=== PATIENT | female | born 1990 | race Caucasian/White ===

== ENCOUNTER 2017-05-30 13:19 | Emergency (ER) | payer OTHER ==
[~2017-05-30] VITALS: Ht 149.9 cm; Wt 49.7 kg
[2017-05-30 13:39] VITALS: BP 132/82
--- NOTE | 2017-05-30 15:17 | NUR ---
Patient ambulated to bed 3 with family. RN evaluating patient at bedside.
--- NOTE | 2017-05-30 15:18 | NUR ---
6F BIB FAMILY C/O HEADACHE ,NAUSEA AND VOMITING X 10 WEEKS; PT STATES 10 WEEKS & EPIGASTRIC PAIN AT THIS TIME. HX OF LUPUS, PANCREATITIS. SKIN IS PINK/WARM/DRY; AAOX4 WITH EVEN AND STEADY GAIT; LUNGS CLEAR BL; HR EVEN AND REGULAR; PT DENIES ANY FEVER, CP, SOB, OR COUGH AT THIS TIME; PATIENT STATES PAIN OF 10/10 AT THIS TIME; VSS; PATIENT POSITIONED FOR COMFORT; HOB ELEVATED; BEDRAILS UP X2; BED DOWN. ER MADE AWARE OF PT STATUS. Addendum: [facility]30[facility]17 [facility] TO [facility] 2 WKS AGO WITH DX OF PANCREATITIS.
--- NOTE | 2017-05-30 15:48 | NUR ---
PT STS'I FEEL ANXIETY NOW & ABDOMINAL PAIN. NOTIFIED ER MD DR OLIVO. Addendum: 05/30/17 at 1743 [facility]
[2017-05-30] MEDS ORDERED: ONDANSETRON 4 MG ODT PO ONE (16:00)
--- NOTE | 2017-05-30 16:12 | NUR ---
RUTHY OLIVO EVALUATING PT AT BEDSIDE. PT STS ALLERGIC TO RAGLAN & JAIRAN. Addendum: 05/30/17 at 1614 by [facility] PT REFUSED MICHELLE . NOTIFIED MD OLIVO.
[2017-05-30] MEDS ORDERED: NACL 0.9% 1,000 ML IV ONE (16:15)
[2017-05-30] MEDS ORDERED: PROMETHAZINE 25 MG/ML VIAL IVP ONE (16:15)
[2017-05-30] MEDS ORDERED: MORPHINE SULFATE 2 MG/ML SYR IVP ONE (16:30)
--- NOTE | 2017-05-30 16:30 | NUR ---
INSERTED IV CATH NO20G LAC; PT TOLERATED PROCEDURE WELL. IV PATENT/INTACT.
--- NOTE | 2017-05-30 16:35 | NUR ---
GAVE IVF & MED ORDER.
--- NOTE | 2017-05-30 16:40 | NUR ---
EPIGASTRIC PAIN, HEADACHE 08/11. ADMINISTERED MORPHINE 2MG IV VIA LAC.
--- NOTE | 2017-05-30 17:18 | NUR ---
PT STS PAIN 01/09 ,DENIES N/V AT THIS TIME. Patient appears to be resting comfortably in bed. Vital Signs within normal limits. Respirations even and unlabored.WILL CONTINUE TO MONITOR.
[2017-05-30] MEDS ORDERED: LORazepam 0.5 MG TAB PO ONE (17:55)
--- NOTE | 2017-05-30 18:20 | NUR ---
IV removed, catheter intact and site benign. Applied folded 4x4 gauze and tape to stop bleeding.
[2017-05-30 18:23] VITALS: BP 108/60
--- NOTE | 2017-05-30 18:23 | NUR ---
Patient discharged with v/s stable. Written and verbal after care instructions given and explained. Patient alert, oriented and verbalized understanding of instructions. Ambulatory with steady gait. All questions addressed prior to discharge. ID band removed. Patient advised to follow up with PMD. Rx of DICLEGIS given. Patient educated on indication of medication including possible reaction and side effects. Opportunity to ask questions provided and answered.
== END 2017-05-30 18:23 | disposition home or self-care (01) ==
LOC: MED 13:19
DX: O21.0 Mild hyperemesis gravidarum (principal); Z3A.10 10 weeks gestation of pregnancy; Z88.8 Allergy status to other drugs, medicaments and biological substances
CPT/HCPCS: 81002; 81025; 96361; 96374; 96375; 99285; J2270; J2550; J7030; S0119